=== PATIENT | male | born 1960 | race Caucasian/White ===

== ENCOUNTER 2024-08-05 15:31 | Emergency (ER) | payer MEDICARE, MEDICAID, SELFPAY ==
--- NOTE | ~2024-08-05 | CT_ITS ---
CLINICAL HISTORY: fall, +head strike CT head without contrast Comparison: None Findings: No acute hemorrhage. No extra-axial fluid collection. No hydrocephalus, mass-effect or herniation. Anand-white differentiation is maintained. There is patchy hypoattenuation of the periventricular and deep white matter, which is most likely the sequela of moderate chronic small vessel ischemic disease. No acute orbital pathology. No acute soft tissue abnormality. No fracture. The visualized paranasal sinuses are predominantly clear. Status post right mastoidectomy. The left mastoid air cells are clear. Impression: No acute findings. This document has been electronically signed by: Liliane Baron MD on 08/05/2024 18:09:41
--- NOTE | ~2024-08-05 | XR_ITS ---
CLINICAL HISTORY: fall,pain Radiographs of the lumbar spine, 3 views Comparison: None Findings: Trace dextrocurvature with the apex at L3. No fracture. The vertebral body heights are preserved. There is mild multilevel intervertebral disc space narrowing with mild endplate osteophytosis. Moderate lower lumbar facet hypertrophy. Vascular calcifications. Impression: No acute findings. [id number] degenerative change. This document has been electronically signed by: Liliane Baron MD on 08/05/2024 17:06:37
--- NOTE | ~2024-08-05 | XR_ITS ---
EXAMINATION: XR THORACIC SPINE CLINICAL INFORMATION: fall,pain COMPARISON: None available. TECHNIQUE: 3 views of the thoracic spine were obtained. FINDINGS: Normal thoracic kyphosis. The vertebral heights, alignment and disc heights are normal. No visible acute fracture, dislocation or lytic process seen. There is minimal scoliosis. Mild right lateral bridging osteophytes are noted at the T10-11 and T11-12 disc level The paravertebral soft tissues are normal. XR/XR thoracic spine 2V IMPRESSION: Mild scoliosis. Right lateral bridging osteophytes T10-T11 and T11-12 disc level. No acute fracture, lytic or sclerotic process. Electronically signed by: Vinod Hannon MD 08/05/2024 05:01 PM EDT
--- NOTE | ~2024-08-05 | CT_ITS ---
CLINICAL HISTORY: fall, +headstrike CT cervical spine without contrast Comparison: None Findings: Normal alignment. No fracture. Small Schmorl's node of the superior endplate of T2. No severe central spinal canal stenosis. No epidural hematoma. Normal thickness of the prevertebral soft tissues. The lung apices are clear. Impression: No acute findings. This document has been electronically signed by: Liliane Baron MD on 08/05/2024 18:11:57
[2024-08-05 16:10] VITALS: BP 126/91; PULSE 75; RESP 16; TEMP 36.5; O2SAT 94; BMI 23.0
--- NOTE | 2024-08-05 16:10 | ED.FALL ---
HPI - Fall General Chief Complaint: Fall Stated Complaint: Fall last night - head injury Time Seen by Provider: 08/05/24 18:24 Source: patient and RN notes reviewed Mode of arrival: ambulatory Limitations: no limitations History of Present Illness ED Provider: Eliana Randhawa PA-C HPI Narrative: This is a [id number] who presents to the ER with complaints of back pain s/p fall which occurred yesterday. Pt states that he was walking up his basement stairs when he dropped something and looked over and he lost his balance and fell approximately detention down the stairs onto the concrete basement floor. No LOC. No headache, dizziness. Reporting back pain. He states that the back pain worsens with palpation with movement. Denies taking any medications to treat his current symptoms. He denies any chest pain, shortness breath, abdominal pain, nausea, vomiting or diarrhea. No other complaints or concerns at this time. MD complaint: fall Onset (ago): day(s) Fall from: down stairs (#) (6) Fall witnessed: no Place fall occurred: home Loss of consciousness: none Prolonged down time: no Symptoms prior to fall: none Context: tripped/slipped Location of injury: back Severity: moderate Quality: aching Associated symptoms (after fall): denies Related Data Allergies Allergy/AdvReac Type Severity Reaction Status Date / Time No Known Allergies Allergy Verified 08/05/24 16:10 Review of Systems Review of Systems: Yes all other systems are reviewed and are negative Constitutional: Constitutional: Reports as per [facility] Social History Social History Advance Directives: No Advance Directives Information Provided: No Physical Exam Vital Signs: Vital Signs: Last Vital Signs Temp 97.7 F 08/05/24 18:40 Pulse 75 08/05/24 18:40 Resp 16 08/05/24 18:40 BP 126/91 H 08/05/24 18:40 Pulse Ox 94 08/05/24 18:40 O2 Del Method Room Air 08/05/24 18:40 BMI result Body Mass Index 23.0 Const: General: cooperative, comfortable and no acute distress Orientation/consciousness: patient oriented x3 Limitations: no limitations HEENT: Head: Yes normal to inspection, Yes normocephalic and Yes atraumatic Ears: hearing grossly normal bilaterally General nose exam: Normal external nose present Face and sinus: Yes normal facial exam Mouth: Normal oral and palatal mucosa present, oropharynx normal and moist mucous membranes Throat: Yes posterior oropharynx normal Eyes: General: appearance normal, both eyes and all related structures Eyelids: Yes eyelids normal Conjunctivae: conjunctivae normal Sclerae: sclerae normal Pupils: Equal, round and reactive pupils present EOM: EOMs intact bilaterally Neck: Other: No midline spine tenderness on examination. Neck: Yes normal visual inspection, Yes full ROM and Yes no lymphadenopathy Lymphatic: no lymphadenopathy noted Chest: Chest palpation & inspection: normal inspection of the chest Resp: Effort & Inspection: normal respiratory effort and able to speak in complete sentences Auscultation: clear to auscultation bilaterally, no crackles, no rales, no rhonchi and no wheezes Cardio: Rate: regular rate Rhythm: regular rhythm Heart sounds: S1 normal heart sound present and S2 normal heart sound present GI: Inspection: Yes normal to inspection Back/Spine/Pelvis: Other: TTP overlying the midline t/l spine. No bony step-off or deformity. He is ambulatory w/ steady gait. Skin: General skin exam: no rashes or lesions noted Trauma: no lacerations or abrasions Wounds: no wounds Neuro: General: patient oriented x3 and moves all extremities Cranial nerves: Yes Equal, round and reactive pupils present Extrem: General: Yes normal to inspection Right upper extremity: normal to inspection Left upper extremity: normal to inspection Right lower extremity: normal to inspection Left lower extremity: normal to inspection Course Course Course Narrative: This is an RME: Additional HPI, ROS, PE not included below will be deferred to primary provider. RME assessment and note performed by: Eliana Randhawa PA-C Plan: CT head/neck, xr t spine l spine Medical Decision Making Medical Decision Making [facility] Narrative: This is a 64-year-old male who presents emergency department with complaints of back pain status post mechanical fall which occurred yesterday. On arrival, vital signs within normal limits. He is speaking in full sentences under no acute distress. He is neurologically intact with no focal deficits. Patient did hit his head however states that he had no LOC he is not on anticoagulation. Head is normocephalic atraumatic. He has no cervical midline spine tenderness. On examination, patient has tenderness palpation along the lumbar and thoracic midline spine. No bony step-off or deformity. No overlying skin changes. Differential diagnoses include compression fracture, spondylosis, muscle sprain, spasm, ICH. Will obtain head CT, C-spine CT, lumbar spine x-ray T-spine x-ray. Course: Head and neck CT revealing no acute findings. X-ray of the T-spine revealing scoliosis, right lateral bridging osteophytes T10 through T 11 and T11-T12. Discussed findings with patient. Discussed to alternate between ibuprofen and or Tylenol as needed for pain, he declines wanting any prescriptions today. Encouraged to follow-up with PCP. Patient understands and agrees with plan. Given strict return precautions. Patient stable for discharge. Differential Diagnosis Differential Diagnoses: The differential diagnosis associated with the presentation includes See above Radiology Impression Discussion of test interpretation with radiology: I have reviewed the radiologist's reading. Radiologist Impression: CLINICAL INFORMATION: fall,pain COMPARISON: None available. TECHNIQUE: 3 views of the thoracic spine were obtained. FINDINGS: Normal thoracic kyphosis. The vertebral heights, alignment and disc heights are normal. No visible acute fracture, dislocation or lytic process seen. There is minimal scoliosis. Mild right lateral bridging osteophytes are noted at the T10-11 and T11-12 disc level The paravertebral soft tissues are normal. XR/XR thoracic spine 2V IMPRESSION: Mild scoliosis. Right lateral bridging osteophytes T10-T11 and T11-12 disc level. No acute fracture, lytic or sclerotic process. Electronically signed by: Vinod Hannon MD 08/05/2024 05:01 PM EDT RP Dictated By: Vinod Hannon MD CLINICAL HISTORY: fall,pain Radiographs of the lumbar spine, 3 views Comparison: None Findings: Trace dextrocurvature with the apex at L3. No fracture. The vertebral body heights are preserved. There is mild multilevel intervertebral disc space narrowing with mild endplate osteophytosis. Moderate lower lumbar facet hypertrophy. Vascular calcifications. Impression: No acute findings. [id number] degenerative change. This document has been electronically signed by: Liliane Baron MD on 08/05/2024 17:06:37 Dictated By: Liliane Castro MD Findings: No acute hemorrhage. No extra-axial fluid collection. No hydrocephalus, mass-effect or herniation. Anand-white differentiation is maintained. There is patchy hypoattenuation of the periventricular and deep white matter, which is most likely the sequela of moderate chronic small vessel ischemic disease. No acute orbital pathology. No acute soft tissue abnormality. No fracture. The visualized paranasal sinuses are predominantly clear. Status post right mastoidectomy. The left mastoid air cells are clear. Impression: No acute findings. This document has been electronically signed by: Liliane Baron MD on 08/05/2024 18:09:41 Dictated By: Liliane Castro MD Report Number: [id number]: Total DLP = 1158.00 mGy-cm CLINICAL HISTORY: fall, +headstrike CT cervical spine without contrast Comparison: None Findings: Normal alignment. No fracture. Small Schmorl's node of the superior endplate of T2. No severe central spinal canal stenosis. No epidural hematoma. Normal thickness of the prevertebral soft tissues. The lung apices are clear. Impression: No acute findings. This document has been electronically signed by: Liliane Baron MD on 08/05/2024 18:11:57 Dictated By: Liliane Castro MD Discharge Plan Discharge Clinical Impression: Fall, Back pain Patient Disposition: Home, Self-Care Instructions: Acute Low Back Pain (ED), Back Pain (ED), Fall Prevention (ED) Additional Instructions: You were seen in the ER after a fall. Your CT head and neck does not show any new abnormalities. Your xray of your back does not show any broken bones. You do have some degenerative changes in your back as well. Take ibuprofen and or tylenol as needed for pain and symptoms. Rest, ice, and use lidocaine patches as needed for pain. If any new or worsening symptoms occur including but not limited to severe pain, chest pain, shortness of breath, numbness/tingling into your groin, weakness in your legs or loss of bladder/bowel control, please seek emergent care. Interventions: ED Discharge Assessment Last Done: 08/05/24 18:40 Discharge Date/Time: 08/05/24 18:41 Print Language: Romansh
[2024-08-05 18:40] VITALS: BP 126/91; PULSE 75; RESP 16; TEMP 36.5; O2SAT 94
== END 2024-08-05 18:41 | disposition home or self-care (01) ==
LOC: HO.ED 18:37
PROVIDERS: Emergency Provider Internal Medicine; PCP Family Medicine
DX: S39.92XA Unspecified injury of lower back, initial encounter (principal); S09.90XA Unspecified injury of head, initial encounter; M54.2 Cervicalgia; R51.9 Headache, unspecified; R10.10 Upper abdominal pain, unspecified; X58.XXXA Exposure to other specified factors, initial encounter; W10.9XXA Fall (on) (from) unspecified stairs and steps, initial encounter; Y93.9 Activity, unspecified; Y92.9 Unspecified place or not applicable; Y99.8 Other external cause status
CPT/HCPCS: 70450; 72070; 72100; 72125; 99282; 99284

== ENCOUNTER → 2024-08-05 16:17 | Outpatient (BNV) | payer MEDICARE, MEDICAID, SELFPAY | PROVIDERS: Visit Provider Radiology Diagnostic Radiology | DX: S09.90XA Unspecified injury of head, initial encounter (principal); M51.360 Other intervertebral disc degeneration, lumbar region with discogenic back pain only; M54.6 Pain in thoracic spine; W19.XXXA Unspecified fall, initial encounter | CPT/HCPCS: 72070 ==